=== PATIENT | female | born 1990 | race Two or more races ===

== ENCOUNTER 2020-03-08 15:05 | Inpatient (IN) | payer BC, OTHER ==
[~2020-03-08] VITALS: Ht 162.6 cm; Wt 96.5 kg
[2020-03-08 15:00] VITALS: BP 136/75
[2020-03-08] MEDS ORDERED: PREN-3 PO (15:19)
[2020-03-08] MEDS ORDERED: LEVO125T5 PO (15:20)
[2020-03-08] MEDS ORDERED: ASPI-496 PO (15:21)
[2020-03-08 15:53] LABS: MICROSCOPIC INDICATED
[2020-03-08 16:01] LABS: BASOPHILS # (AUTO) 0.09 x10^3/uL (0-0.1); BASOPHILS % (AUTO) 1 % (0-1); EOSINOPHILS # (AUTO) 0.17 x10^3/uL (0-0.4); EOSINOPHILS % (AUTO) 1 % (1-7); LYMPHOCYTES % (AUTO) 16 % (22-44); MD NO; MEAN CORPUSCULAR HEMOGLOBIN 26.3 pg (27.0-34.8); MEAN CORPUSCULAR HGB CONC 31.7 g/dL (32.4-35.8); MEAN CORPUSCULAR VOLUME 83.1 fL (80-100); MEAN PLATELET VOLUME 8.1 fL (7.4-10.4); MONOCYTES # (AUTO) 1.11 x10^3/uL (0.2-0.8); MONOCYTES % (AUTO) 7 % (2-9); NEUTROPHILS # (AUTO) 11.38 x10^3/uL (1.8-6.8); NEUTROPHILS % (AUTO) 75 % (42-75); PLATELET COUNT 451 x10^3/uL (130-400); RED CELL DISTRIBUTION WIDTH 16.9 % (9.6-15.2)
[2020-03-08] MEDS ORDERED: MAGNESIUM SULF. PMX 20GM/500ML 500 ML IV ONE (21:13)
[2020-03-08] MEDS ORDERED: MAGNESIUM SULFATE PMX 4GM/100M 100 ML ONE (21:13)
[2020-03-08] MEDS ORDERED: MAGNESIUM SULFATE PMX 4GM/100M 100 ML IVPB ONE (21:30)
[2020-03-08] MEDS: MAGNESIUM SULF. PMX 20GM/500ML 500 ML IV SCH (22:06)
[2020-03-08] MEDS ORDERED: ONDANSETRON 2MG/ML, 2ML IVPush PRN (23:30)
[2020-03-08] MEDS ORDERED: PRENATAL VIT/IRON/FA 1 EACH TABLET ONE (23:39)
[2020-03-09] MEDS ORDERED: ACETAMINOPHEN 325 MG TABLET ONE (03:36)
[2020-03-09] MEDS: ACETAMINOPHEN 325 MG TABLET PO PRN (03:37)
[2020-03-09] MEDS: LACTATED RINGERS 1,000 ML IV SCH ×2 (03:38→13:37)
[2020-03-09] MEDS ORDERED: MAGNESIUM SULF. PMX 20GM/500ML 500 ML IV ONE ×2 (06:50→16:21)
[2020-03-09] MEDS: MAGNESIUM SULF. PMX 20GM/500ML 500 ML IV SCH ×2 (06:53→16:25)
[2020-03-09 08:16] VITALS: BP 121/72
[2020-03-09] MEDS ORDERED: LEVOTHYROXINE 125 MCG TABLET PO SCH (09:00)
[2020-03-09] MEDS ORDERED: DOCUSATE 100 MG CAPSULE PO PRN (09:00)
[2020-03-09] MEDS ORDERED: ASPIRIN 81 MG TABLET CHEW PO SCH (12:00)
[2020-03-09] MEDS ORDERED: ASPIRIN 81 MG TABLET CHEW HOMEMEDPO SCH (12:00)
[2020-03-09] MEDS: PRENATAL VIT/IRON/FA 1 EACH TABLET HOMEMEDPO SCH (21:00)
[2020-03-09] MEDS ORDERED: PRENATAL VIT/IRON/FA 1 EACH TABLET PO SCH (21:00)
[2020-03-10] MEDS: LEVOTHYROXINE 125 MCG TABLET HOMEMEDPO SCH (06:00)
[2020-03-10] MEDS ORDERED: LEVOTHYROXINE 125 MCG TABLET HOMEMEDPO SCH (06:00)
[2020-03-10] MEDS ORDERED: DOCUSATE 100 MG CAPSULE ONE (07:13)
[2020-03-10] MEDS: ASPIRIN 81 MG TABLET CHEW HOMEMEDPO SCH (09:00)
[2020-03-10 10:42] VITALS: BP 121/66
[2020-03-10] MEDS: SODIUM CHLORIDE FLUSH 3ML SYRINGE IVF SCH ×3 (10:48→22:00)
[2020-03-10] MEDS: PRENATAL VIT/IRON/FA 1 EACH TABLET HOMEMEDPO SCH (21:00)
[2020-03-11] MEDS: LEVOTHYROXINE 125 MCG TABLET HOMEMEDPO SCH (06:00)
[2020-03-11] MEDS: ASPIRIN 81 MG TABLET CHEW HOMEMEDPO SCH (09:00)
[2020-03-11] MEDS: SODIUM CHLORIDE FLUSH 3ML SYRINGE IVF SCH ×2 (09:00→21:45)
[2020-03-11 09:26] VITALS: BP 126/74
[2020-03-11 21:45] VITALS: BP 125/78
[2020-03-12 00:54] VITALS: BP 125/79
[2020-03-12] MEDS: LEVOTHYROXINE 125 MCG TABLET HOMEMEDPO SCH (07:00)
[2020-03-12] MEDS: ASPIRIN 81 MG TABLET CHEW HOMEMEDPO SCH ×2 (09:00→12:00)
[2020-03-12] MEDS: SODIUM CHLORIDE FLUSH 3ML SYRINGE IVF SCH ×2 (09:26→21:00)
[2020-03-12] MEDS: PRENATAL VIT/IRON/FA 1 EACH TABLET HOMEMEDPO SCH (21:00)
[2020-03-12 21:30] VITALS: BP 124/76
[2020-03-12 23:00] VITALS: BP 131/89
[2020-03-13 07:01] VITALS: BP 123/87
[2020-03-13] MEDS: LEVOTHYROXINE 125 MCG TABLET HOMEMEDPO SCH (07:15)
[2020-03-13] MEDS: SODIUM CHLORIDE FLUSH 3ML SYRINGE IVF SCH ×2 (09:00→20:06)
[2020-03-13] MEDS: ASPIRIN 81 MG TABLET CHEW HOMEMEDPO SCH (12:00)
[2020-03-13 19:20] VITALS: BP 132/65
[2020-03-14] MEDS: LEVOTHYROXINE 125 MCG TABLET HOMEMEDPO SCH (06:00)
[2020-03-14] MEDS ORDERED: DOCUSATE 100 MG CAPSULE ONE (09:29)
[2020-03-14 10:54] VITALS: BP 114/61
[2020-03-14] MEDS: ASPIRIN 81 MG TABLET CHEW HOMEMEDPO SCH (12:00)
[2020-03-14] MEDS ORDERED: CALCIUM CARBONATE 500 MG TAB.CHEW ONE (20:12)
[2020-03-14] MEDS: PRENATAL VIT/IRON/FA 1 EACH TABLET HOMEMEDPO SCH (21:00)
[2020-03-15] MEDS: LEVOTHYROXINE 125 MCG TABLET HOMEMEDPO SCH (06:00)
[2020-03-15] MEDS: PRENATAL VIT/IRON/FA 1 EACH TABLET HOMEMEDPO SCH (21:00)
[2020-03-15] MEDS ORDERED: PRENATAL VIT/IRON/FA 1 EACH TABLET ONE (21:00)
[2020-03-16] MEDS: LEVOTHYROXINE 125 MCG TABLET HOMEMEDPO SCH (06:00)
[2020-03-16] MEDS: ASPIRIN 81 MG TABLET CHEW HOMEMEDPO SCH (12:00)
[2020-03-16] MEDS: PRENATAL VIT/IRON/FA 1 EACH TABLET HOMEMEDPO SCH (21:10)
[2020-03-17] MEDS: LEVOTHYROXINE 125 MCG TABLET HOMEMEDPO SCH (07:00)
[2020-03-17] MEDS: ASPIRIN 81 MG TABLET CHEW HOMEMEDPO SCH (12:00)
[2020-03-17] MEDS: PRENATAL VIT/IRON/FA 1 EACH TABLET HOMEMEDPO SCH (21:44)
[2020-03-17] MEDS: ACETAMINOPHEN 325 MG TABLET PO PRN (22:11)
[2020-03-17] MEDS ORDERED: ACETAMINOPHEN 325 MG TABLET ONE (22:11)
[2020-03-18] MEDS: LEVOTHYROXINE 125 MCG TABLET HOMEMEDPO SCH (07:00)
[2020-03-18] MEDS: ASPIRIN 81 MG TABLET CHEW HOMEMEDPO SCH (12:00)
[2020-03-18 20:00] VITALS: BP 125/78
[2020-03-18] MEDS: PRENATAL VIT/IRON/FA 1 EACH TABLET HOMEMEDPO SCH (21:00)
[2020-03-19] MEDS: LEVOTHYROXINE 125 MCG TABLET HOMEMEDPO SCH (07:00)
[2020-03-20] MEDS: LEVOTHYROXINE 125 MCG TABLET HOMEMEDPO SCH (07:00)
[2020-03-20] MEDS ORDERED: MAGNESIUM SULF. PMX 20GM/500ML 500 ML IV ONE ×2 (08:11→16:31)
[2020-03-20] MEDS ORDERED: CALCIUM GLUCONATE 4.6 MEQ/10 ML IV PRN (08:30)
[2020-03-20] MEDS ORDERED: MAGNESIUM SULFATE PMX 2GM/50ML 50 ML IVPB ONE (08:30)
[2020-03-20] MEDS ORDERED: MAGNESIUM SULFATE PMX 4GM/100M 100 ML IVPB ONE (08:30)
[2020-03-20] MEDS ORDERED: CALCIUM GLUCONATE 4.6 MEQ in SODIUM CHLORIDE 0.9% 100 ML IV ONE (09:00)
[2020-03-20] MEDS: MAGNESIUM SULF. PMX 20GM/500ML 500 ML IV SCH ×2 (09:35→16:33)
[2020-03-20 09:46] VITALS: BP 110/66
[2020-03-20] MEDS: ASPIRIN 81 MG TABLET CHEW HOMEMEDPO SCH ×2 (16:34→18:56)
[2020-03-20] MEDS: PRENATAL VIT/IRON/FA 1 EACH TABLET HOMEMEDPO SCH ×2 (18:58→21:00)
[2020-03-20] MEDS ORDERED: LACTATED RINGERS 1,000 ML IV PRN (19:22)
[2020-03-20] MEDS ORDERED: PENICILLIN GK 5,000,000 UNITS in DEXTROSE 5% 100 ML IVPB ONE (21:00)
[2020-03-20] MEDS ORDERED: FENTANYL PF 100 MCG/2ML ONE ×2 (21:47→23:09)
[2020-03-20] MEDS: FENTANYL PF 100 MCG/2ML IVPush PRN ×2 (21:52→23:13)
[2020-03-20] MEDS ORDERED: FENTANYL PF 100 MCG/2ML IV PRN (22:00)
[2020-03-21] MEDS ORDERED: MISOPROSTOL 200 MCG TABLET ONE (00:19)
[2020-03-21] MEDS ORDERED: LIDOCAINE 1%, 20ML ONE (00:19)
[2020-03-21] MEDS ORDERED: OXYTOCIN 30U/ 0.9% NaCL 500ML 500 ML ONE ×2 (00:19→06:50)
[2020-03-21] MEDS ORDERED: MAGNESIUM SULF. PMX 20GM/500ML 500 ML IV ONE (00:36)
[2020-03-21] MEDS ORDERED: FENTANYL/BUPIV./NS/PF 250 ML EPIDCONT SCH ×2 (00:38→02:28)
[2020-03-21] MEDS ORDERED: LACTATED RINGERS 1,000 ML IV SCH ×2 (00:39→02:28)
[2020-03-21] MEDS ORDERED: OXYTOCIN 30U/ 0.9% NaCL 500ML 500 ML IV ONE (00:39)
[2020-03-21] MEDS ORDERED: FENTANYL/BUPIV./NS/PF 250 ML EPIDCONT ONE ×2 (00:48→01:35)
[2020-03-21] MEDS: MAGNESIUM SULF. PMX 20GM/500ML 500 ML IV SCH (00:55)
[2020-03-21] MEDS ORDERED: PENICILLIN GK 2,500,000 UNITS in DEXTROSE 5% 100 ML IVPB SCH (01:00)
[2020-03-21] MEDS ORDERED: ONDANSETRON 2MG/ML, 2ML IVPush PRN (01:00)
[2020-03-21] MEDS ORDERED: TERBUTALINE 1 MG/ML, 1ML SQ PRN (01:00)
[2020-03-21] MEDS ORDERED: TERBUTALINE 1 MG/ML, 1ML IVPush PRN (01:00)
[2020-03-21 01:21] LABS: MEAN CORPUSCULAR HEMOGLOBIN 26.4 pg (27.0-34.8); MEAN CORPUSCULAR HGB CONC 32.2 g/dL (32.4-35.8); MEAN CORPUSCULAR VOLUME 82.1 fL (80-100); PLATELET COUNT 407 x10^3/uL (130-400); RED BLOOD COUNT 4.43 x10^6/uL (3.82-5.3); RED CELL DISTRIBUTION WIDTH 17.4 % (9.6-15.2)
[2020-03-21] MEDS ORDERED: LIDOCAINE/PF 1.5%-EPI 1:200K, 30ML ONE (01:35)
[2020-03-21] MEDS ORDERED: FENTANYL PF 100 MCG/2ML ONE ×3 (01:35→06:17)
[2020-03-21 01:43] LABS: BASOPHILS # (AUTO) 0.04 x10^3/uL (0-0.1); BASOPHILS % (AUTO) 0 % (0-1); EOSINOPHILS # (AUTO) 0.05 x10^3/uL (0-0.4); EOSINOPHILS % (AUTO) 0 % (1-7); LYMPHOCYTES # (AUTO) 1.22 x10^3/uL (1-3.4); LYMPHOCYTES % (AUTO) 7 % (22-44); MD SCAN; MONOCYTES # (AUTO) 0.52 x10^3/uL (0.2-0.8); MONOCYTES % (AUTO) 3 % (2-9); NEUTROPHILS # (AUTO) 15.36 x10^3/uL (1.8-6.8); NEUTROPHILS % (AUTO) 89 % (42-75)
[2020-03-21] MEDS ORDERED: LACTATED RINGERS 1,000 ML IVBOLUS PRN (02:30)
[2020-03-21] MEDS ORDERED: EPHEDRINE 50 MG/ML, 1ML IVPush PRN (02:30)
[2020-03-21] MEDS ORDERED: EPHEDRINE 50 MG/ML, 1ML ONE ×2 (04:54)
[2020-03-21] MEDS: LEVOTHYROXINE 125 MCG TABLET HOMEMEDPO SCH (06:00)
[2020-03-21] MEDS: OXYTOCIN 30U/ 0.9% NaCL 500ML 500 ML IV SCH ×2 (06:22→16:22)
[2020-03-21] MEDS ORDERED: MAGNESIUM HYDROXIDE 8%, 30ML UDC PO PRN (06:30)
[2020-03-21] MEDS ORDERED: METHYLERGONOVINE 0.2 MG/ML IM PRN (06:30)
[2020-03-21] MEDS ORDERED: ACETAMINOPHEN 325 MG TABLET PO PRN (06:30)
[2020-03-21] MEDS ORDERED: SIMETHICONE 80 MG CHEW TAB PO PRN (06:30)
[2020-03-21] MEDS ORDERED: OXYcodone/APAP 5/325MG TABLET PO PRN (06:30)
[2020-03-21] MEDS ORDERED: METOCLOPRAMIDE 5 MG/ML, 2ML IV PRN (06:30)
[2020-03-21] MEDS ORDERED: BISACODYL 10 MG SUPP PR PRN (06:30)
[2020-03-21] MEDS ORDERED: PRENATAL VIT/IRON/FA 1 EACH TABLET PO SCH (09:00)
[2020-03-21] MEDS: ASPIRIN 81 MG TABLET CHEW HOMEMEDPO SCH (09:00)
[2020-03-21 09:20] VITALS: BP 136/84
[2020-03-21] MEDS: IBUPROFEN 600 MG TABLET PO PRN ×2 (09:27→21:47)
[2020-03-21 12:00] VITALS: BP 122/84
[2020-03-21 15:24] VITALS: BP 112/72
[2020-03-21 19:30] VITALS: BP 124/80
[2020-03-21] MEDS: DOCUSATE 100 MG CAPSULE PO PRN (21:47)
[2020-03-22 00:15] VITALS: BP 116/75
[2020-03-22] MEDS: OXYTOCIN 30U/ 0.9% NaCL 500ML 500 ML IV SCH (02:22)
[2020-03-22 04:45] VITALS: BP 116/78
[2020-03-22] MEDS: IBUPROFEN 600 MG TABLET PO PRN ×3 (04:51→18:29)
[2020-03-22] MEDS: LEVOTHYROXINE 125 MCG TABLET HOMEMEDPO SCH (06:35)
[2020-03-22 07:10] VITALS: BP 100/65
[2020-03-22] MEDS: PRENATAL VIT/IRON/FA 1 EACH TABLET HOMEMEDPO SCH ×2 (09:00→21:00)
[2020-03-22] MEDS: DOCUSATE 100 MG CAPSULE PO PRN (11:05)
[2020-03-22 20:00] VITALS: BP 116/75
[2020-03-22 22:22] LABS: BASOPHILS # (AUTO) 0.05 x10^3/uL (0-0.1); BASOPHILS % (AUTO) 1 % (0-1); EOSINOPHILS # (AUTO) 0.23 x10^3/uL (0-0.4); EOSINOPHILS % (AUTO) 2 % (1-7); LYMPHOCYTES # (AUTO) 2.03 x10^3/uL (1-3.4); LYMPHOCYTES % (AUTO) 18 % (22-44); MD NO; MEAN CORPUSCULAR HEMOGLOBIN 26.5 pg (27.0-34.8); MEAN CORPUSCULAR VOLUME 82.7 fL (80-100); MEAN PLATELET VOLUME 7.8 fL (7.4-10.4); MONOCYTES # (AUTO) 0.66 x10^3/uL (0.2-0.8); MONOCYTES % (AUTO) 6 % (2-9); NEUTROPHILS # (AUTO) 8.11 x10^3/uL (1.8-6.8); NEUTROPHILS % (AUTO) 73 % (42-75); PLATELET COUNT 426 x10^3/uL (130-400); RED CELL DISTRIBUTION WIDTH 17.5 % (9.6-15.2)
[2020-03-23] MEDS: IBUPROFEN 600 MG TABLET PO PRN ×3 (01:02→14:01)
[2020-03-23] MEDS: LEVOTHYROXINE 125 MCG TABLET HOMEMEDPO SCH (06:00)
[2020-03-23 07:27] VITALS: BP 118/77
[2020-03-23] MEDS: PRENATAL VIT/IRON/FA 1 EACH TABLET HOMEMEDPO SCH (07:53)
[2020-03-23] MEDS ORDERED: IBUP-1222 PO (13:48)
== END 2020-03-23 14:19 | disposition home or self-care (01) | DRG 805 ==
LOC: LDIP 15:05 → 2NW 03-21 10:21
PROVIDERS: ADMIT Obstetrics & Gynecology Maternal & Fetal Medicine; ATTEND Obstetrics & Gynecology Maternal & Fetal Medicine
PROC: 10E0XZZ Delivery of Products of Conception, External Approach (ICD-10-PCS; principal; 2020-03-21)
PROC: 0KQM0ZZ Repair Perineum Muscle, Open Approach (ICD-10-PCS; 2020-03-21)
PROC: 0W8NXZZ Division of Female Perineum, External Approach (ICD-10-PCS; 2020-03-21)
PROC: 3E0R3BZ Introduction of Anesthetic Agent into Spinal Canal, Percutaneous Approach (ICD-10-PCS; 2020-03-21)
PROC: 00HU33Z Insertion of Infusion Device into Spinal Canal, Percutaneous Approach (ICD-10-PCS; 2020-03-21)
DX: O34.33 Maternal care for cervical incompetence, third trimester (principal); O60.14X0 Preterm labor third trimester with preterm delivery third trimester, not applicable or unspecified; Z37.0 Single live birth; O70.1 Second degree perineal laceration during delivery; O99.214 Obesity complicating childbirth; E66.01 Morbid (severe) obesity due to excess calories; O99.284 Endocrine, nutritional and metabolic diseases complicating childbirth; E03.9 Hypothyroidism, unspecified; Z3A.29 29 weeks gestation of pregnancy; Z03.818 Encounter for observation for suspected exposure to other biological agents ruled out
CPT/HCPCS: 36415; J3490; 81001; 82803; 83735; 84443; 85025; 86592; 86850; 86900; 87086; 88307; 89060; G0378; J0610; J2540; J3010; J3475; J7120; Q0114; U0001-CS